=== PATIENT | male | born 1960 | race African-American/Black ===

== ENCOUNTER 2021-06-30 11:05 | Day surgery (SDC) | payer BC ==
[2021-06-27 15:50] VITALS: BMI 40.5
[~2021-06-30 11:05] MED LIST: ACETAMINOPHEN 325 MG TABLET (FP) PO PRN; CEFAZOLIN 1 GM/D5W 1 GM/50 ML BAG IVPB ONE
== END 2021-06-30 12:02 | disposition home or self-care (01) ==
LOC: FASU 11:05 → EDBD 12:30
PROVIDERS: ATTEND Podiatrist
PROC: 0QSP04Z Reposition Left Metatarsal with Internal Fixation Device, Open Approach (ICD-10-PCS; principal; 2021-06-30)
DX: M21.612 Bunion of left foot (principal); Z53.09 Procedure and treatment not carried out because of other contraindication

== ENCOUNTER 2022-11-17 11:34 | Day surgery (SDC) | payer OTHER, BC ==
[2022-11-09 12:38] VITALS: BMI 41.1
[~2022-11-17 11:34] MED LIST changes: -ACETAMINOPHEN 325 MG TABLET (FP) PO PRN; +CEFAZOLIN 1 GM in DEXTROSE 5%-WATER - 50 ML IVPB ONE; -CEFAZOLIN 1 GM/D5W 1 GM/50 ML BAG IVPB ONE
[2022-11-17] MEDS ORDERED: BUPIVACAINE HCL/PF 0.25% (2.5MG/ML) 10 ML VIAL ONE ×2 (11:58→13:09)
[2022-11-17] MEDS ORDERED: DEXAMETHASONE SOD PHOSPHATE 4 MG/1 ML VIAL ONE ×2 (11:58→12:33)
[2022-11-17] MEDS ORDERED: LIDOCAINE HCL 2% (20ML MULTI-DOSE VIAL) ONE (11:58)
[2022-11-17] MEDS ORDERED: MIDAZOLAM HCL 2 MG/2 ML SINGLE DOSE VIAL ONE (12:21)
[2022-11-17] MEDS ORDERED: PROPOFOL 40 ML ONE (12:21)
[2022-11-17] MEDS ORDERED: ONDANSETRON 4 MG/2 ML VIAL ONE (12:33)
[2022-11-17] MEDS ORDERED: KETOROLAC TROMETHAMINE 30 MG/1 ML VIAL ONE (12:33)
[2022-11-17] MEDS ORDERED: ceFAZolin SODIUM 1 GM VIAL ONE (12:33)
[2022-11-17] MEDS ORDERED: ONDANSETRON 4 MG/2 ML VIAL IVPUSH PRN (14:14)
[2022-11-17] MEDS ORDERED: ACETAMINOPHEN 325 MG TABLET (FP) PO PRN (14:14)
[2022-11-17] MEDS ORDERED: oxyCODONE HCL 5 MG TABLET PO PRN ×2 (14:14)
[2022-11-17 14:24] VITALS: TEMP 97.8
[2022-11-17 14:53] VITALS: BP 158/101; PULSE 57
[2022-11-17 14:57] VITALS: RESP 16
== END 2022-11-17 15:26 | disposition home or self-care (01) ==
LOC: FASU 11:34
PROVIDERS: ATTEND Podiatrist
PROC: 0QSP04Z Reposition Left Metatarsal with Internal Fixation Device, Open Approach (ICD-10-PCS; principal; 2022-11-17 13:00)
DX: M20.12 Hallux valgus (acquired), left foot (principal)
CPT/HCPCS: 88304-TC; 88311-TC